=== PATIENT | male | born 1970 | race Caucasian/White ===

== ENCOUNTER 2020-07-01 18:00 | Emergency (ER) | payer OTHER, BC, SELFPAY ==
[2020-07-01 18:02] VITALS: BP 167/89; PULSE 60; RESP 15; TEMP 36.3; O2SAT 97; BMI 26.9
--- NOTE | 2020-07-01 18:48 | RAD_ITS ---
STUDY: X-RAY - LEFT HAND REASON FOR EXAM: Male, 50 years old. LEFT HAND CAUGHT IN A MACHINE PRESS TECHNIQUE: 3 view(s) of the hand. COMPARISON: None. FINDINGS: Normal radiocarpal articulation. Normal distal radioulnar joint. Normal visualized carpal bones. Normal carpal articulations Normal carpometacarpal articulation of the thumb. Normal second through fifth carpometacarpal joints. Normal metacarpi. Normal metacarpophalangeal joint of the thumb. Normal interphalangeal joint of the thumb. Normal proximal and distal phalanges of the thumb. Normal metacarpophalangeal joints of the second through fifth fingers. Normal proximal and distal interphalangeal joints of the second through fifth fingers. Normal phalanges of the second through fifth fingers. The soft tissue structures are unremarkable. RAD/Hand Min 3 Views IMPRESSION: Within normal limits x-ray examination of the hand. Electronically Signed: Caridad Smith MD at 19:17 EDT Tel , Service support ,
[2020-07-01 19:14] VITALS: RESP 16
--- NOTE | 2020-07-01 19:22 | ED.VISSUMM ---
- ER Visit Summary Date of Service: 07/01/20 Chief Complaint: Left wrist and hand injury at work History of Present Illness: The patient is a 50 M [id number]. Past medical history of depression no prior surgery to his left upper extremity or hand. Patient works at [employer]. Marko while at work had his left wrist caught in a press. It was trapped in the machine for several minutes. Complaining of numbness and tingling to his left thumb, index, long and ring fingers. Sparing of the left small finger. No prior history. Physical Examination: Well-appearing middle-aged male vital signs stable afebrile. HEENT exam normal. Neck nontender. Lungs clear to auscultation. Heart regular rhythm no murmur. M soft nontender. Extremities moves all 4. Left shoulder, elbow, wrist are nontender. Full range of motion. Normal motor strength. Is a strong palpable radial and ulnar pulse on both wrists. Specifically on the left. Normal cap refill to all digits of his left hand. He is full flexion-extension all digits of his hand. There is no swelling. No bony deformity. He does complain of decreased touch sensation to his left thumb, index, long and ring fingers. Normal sensation left small finger. No lacerations are noted. No signs of infection. Test Results: X-ray left hand and wrist read as normal by myself. 3 views. Emergency Department Course and Treatment: History are consistent with soft tissue injury of his left wrist with compression of his radial and median nerves. There is no signs of any type of vascular injury. Imaging was unremarkable. Treatment Plan: Ice and elevate. Anti-inflammatories. This should progressively improve. If not follow-up with workers comp. Corporate care. Disposition: Discharge Impression: Left wrist contusion with compression of the left radial and median nerves Worker's Comp. injury This note was generated with [employer] dictation software. It may contain incorrect words, spelling, and punctuation that were not noted in review of the chart prior to signing ED Disposition - Plan for ED Patient: Referrals: Breonna Pal DO [Primary Care Provider] -
--- NOTE | 2020-07-01 19:25 | ED.DEP ---
ED Disposition - Plan for ED Patient: Disposition: Home or Assisted Living Instructions: ED EXTREMITY CONTUSION Upper Referrals: Breonna Pal, [Primary Care Provider] - 1 Week if not improving Corporate,Care [GROUP OF PHYSICIANS] - 1 Week if not improving Additional Instructions: Elevate left wrist to decrease swelling. Motrin for pain and swelling. The numbness in your left hand should improve over the next several days the next several weeks and completely resolved. If not follow-up.
[2020-07-01 19:50] VITALS: RESP 16
== END 2020-07-01 19:50 | disposition home or self-care (01) ==
PROVIDERS: Emergency Provider Emergency Medicine; PCP Family Medicine
DX: S60.212A Contusion of left wrist, initial encounter (principal); W31.1XXA Contact with metalworking machines, initial encounter; Y93.9 Activity, unspecified; Y92.9 Unspecified place or not applicable; Y99.0 Civilian activity done for income or pay; G56.32 Lesion of radial nerve, left upper limb; G56.12 Other lesions of median nerve, left upper limb; Z72.0 Tobacco use
CPT/HCPCS: 73130; 99282

== ENCOUNTER 2020-08-10 10:30 | Outpatient (RCR) | payer OTHER, SELFPAY ==
[2020-07-15 09:59] VITALS: BMI 26.9
--- NOTE | 2020-07-27 13:04 | HP.OTEVAL ---
Patient's Visit Information GEORGES YEBOAH is a 50 year old M, referred to Occupational Therapy by JASVIR Johnson, with a diagnosis of left wrist contusion. Date of Evaluation: 07/27/20 Occupational Therapist: SONDRA Vargas/Gina, CHT - Subjective this 50 year old male was seen for OT eval with dx of left wrist contusion. Pt states 2019, he got his left hand caught in a machine. pt states a bar about 2 for 3-5 min. pt states he noticed numbness and the feeling of his fingers going to pop. pt states he has a exstream sensitivity to hot/cold but can not feel wet sensation. pt went to ER was - x-rays were negative. after no relive [facility] was given a brace, was given prednisone but no relieve. pt is on light duty Shahid no lift over 10# no repetatvie motion. - Pain left wrist/hand 6 Pain Intensity Range: 6, 7 - ROM Wrist: right 75/65 left 65/50 Opposition: right 10 left 10 - Strength Mailroom Coordinator: right 110# left 55# Lateral Pinch: right 22# left 16# Tripod Pinch: right 14# left 10# Tip-to-Tip Pinch: right 16# left 10# - Sensation Thumb: right 2.83 left 2.83 Index: right 2.83 left 2.83 Middle: right 2.83 left 4.31 Ring: right 2.83 left 2.83 Little: right 2.83 left 2.83 - Quick DASH-Disab of Arm,Shoulder& Hand Quick DASH Score: 70.0000 - Goals Goal:: pt will demo a increase in right pad machine offbearer strength by 30# or greater to increase pts ind. with ADLs and IADLS by d/c Goal:: Pt will demo a increase in left wrist ROM equal to right by d/c to return pt to IND with ADLs and IADLs by d/c Goal:: pt will report no pain greater than 2/10 with use of left UE for ADLs and IADL by d/c Goal:: Pt will demo a reduction in monofilament testing of left MF to 3.22 or less indicating a improvement in median never recovery - Rehabilitation General Assessment: Pt demo a with a decline in left wrist ROM , weak left pad machine offbearer strength and numbness limiting pts functional use of right UE with ADls and IADls. Pt would benefit from skilled OT services 2-3x wee for 3 -4 weeks to return pt to PLOF. Today therapist ed, pt on forearm stretching and median nerve glides. Therapist ed. pt on median nerve distribution to fingers. Pt demo understanding and agree to POC. Rehabilitation Potential: Good - Anticipated Interventions A/AAROM/PROM, Strengthening, Triggerpoint Release, Sensory Retraining, Modalities, Fine Motor Coord/Chong, Sensory Stimulation - Visit Plan Frequency: 3x /Week Duration: 6 Weeks TEXT: Thank you for the opportunity to evaluate your patient. For Medicare and Medicare HMO plans, please review the plan of care and approve it. It will need to be FAXED BACK to us at [phone] for Medicare purposes. Please let me know if there are questions or concerns regarding this plan of care. Physician Signature: Date:
--- NOTE | 2020-09-30 08:12 | HP.OT.NRP ---
GEORGES Hartmann EDILIA was seen in my office for initial evaluation on 07/27/20. The following Plan of Care was established for this patient: Initial Frequency: 3x /Week Initial Duration: 6 Weeks Plan: cont with US and stretching median nerve glides Anticipated Interventions: A/AAROM/PROM, Strengthening, Triggerpoint Release, Sensory Retraining, Modalities, Fine Motor Coord/Chong, Sensory Stimulation This patient was last seen in our office 08/10/20. Pertinent comments regarding their Occupational therapy will appear below: pt was seen for 5 OT visits only- no further apts have been scheduled pt d/c due to time lapse in OT services. At this point I will be discontinuing this patient from occupational therapy. I would be happy to see this patient again in the future if found appropriate by the physician. Thank you! Lindsay Royal, OTR/L, CHT
== END 2020-08-10 19:00 | disposition home or self-care (01) ==
LOC: OT 10:30
PROVIDERS: PCP Family Medicine; Referring Provider Physician Assistant; Visit Provider Physician Assistant
DX: S60.212D Contusion of left wrist, subsequent encounter (principal)
CPT/HCPCS: 97035; 97110; 97140; 97166; 97530